=== PATIENT | male | born 2000 | race Two or more races ===

== ENCOUNTER 2023-06-02 19:25 | Emergency (ER) | payer OTHER ==
[~2023-06-02] VITALS: Ht 182.9 cm; Wt 63.5 kg
== END 2023-06-02 22:08 | disposition home or self-care (01) ==
LOC: ER 19:26
DX: S61.215A Laceration without foreign body of left ring finger without damage to nail, initial encounter (principal); W26.0XXA Contact with knife, initial encounter; Y93.89 Activity, other specified; Y92.89 Other specified places as the place of occurrence of the external cause; Y99.8 Other external cause status